=== PATIENT | female | born 1930 | race Caucasian/White ===

== ENCOUNTER 2017-11-16 14:40 | Inpatient (IN) | payer MEDICARE, OTHER ==
--- NOTE | 2017-11-16 15:05 | ED Physician Chart ---
ED Chief Complaint/HPI - Patient Information Date Seen:: 11/16/17 Time Seen:: 14:50 Chief Complaint:: Agitation History of Present Illness:: onset x 3 days of agitation and aggressive behavior; no report of trauma, SIs, H /As, neck pain, C/P, SOB, Abd. Pain, A/N/V/D/C, fever, chills, or urinary s/s Historian:: Patient, EMS Review:: Nurse's Note Reviewed, Old Chart Reviewed, EMS run form Reviewed ED Review of Systems - Review of Systems General/Constitutional: No fever, No chills, No weight loss, No weakness, No diaphoresis, No edema, No loss of appetite Skin: No skin lesions, No rash, No bruising Head: No headache, No light-headedness Eyes: No loss of vision, No pain, No diplopia ENT: No earache, No nasal drainage, No sore throat, No tinnitus Neck: No neck pain, No swelling, No thyromegaly, No stiffness, No mass noted Cardio Vascular: No chest pain, No palpitations, No PND, No orthopnea, No edema Pulmonary: No SOB, No cough, No sputum, No wheezing GI: No nausea, No vomiting, No diarrhea, No pain, No melena, No hematochezia, No constipation, No hematemesis G/U: No dysuria, No frequency, No hematuria Millinery Copyist: No vaginal discharge, No abnormal vaginal bleed, No contraction Musculoskeletal: No bone or joint pain, No back pain, No muscle pain Endocrine: No polyuria, No polydipsia Psychiatric: Prior psych history, No depression, Anxiety, No suicidal ideation, No homicidal ideation, No auditory hallucination, No visual hallucination Hematopoietic: No bruising, No lymphadenopathy Allergic/Immuno: No urticaria, No angioedema Neurological: No syncope, No focal symptoms, No weakness, No paresthesia, No headache, No seizure, No dizziness, Confusion, No vertigo ED Past Medical History - Past Medical History Obtainable: Yes Past Medical History: HTN, CAD, Arthritis, Dementia Family History: HTN Social History: Non Smoker, No Alcohol, No Drug Use, , Care Facility Surgical History: None Psychiatricy History: Bipolar, Dementia Medication: Reviewed Family Medical History - Family Member Mother History Unknown: Yes Living Status: ED Physical Exam - Physical Examination General/Constitutional: Awake, Well-developed, well-nourished, Alert, No distress, GCS 15, Non-toxic appearing, Ambulatory Head: Atraumatic Eyes: Lids, conjuctiva normal, PERRL, EOMI Skin: Nl inspection, No rash, No skin lesions, No ecchymosis, Well hydrated, No lymphadenopathy ENMT: External ears, nose nl, TM canals nl, Nasal exam nl, Lips, teeth, gums nl , Oropharynx nl, Tonsils nl Neck: Nontender, Full ROM w/o pain, No JVD, No nuchal rigidity, No bruit, No mass, No stridor Respiratory: Nl effort/Exclusion, Clear to Auscultation, No Wheeze/Rhonchi/Rales Cardio Vascular: RRR, No murmur, gallop, rubs, NL S1 S2, Carotid/Femoral/Distal pulses equal bilaterally GI: No tenderness/rebounding/guarding, No organomegaly, No hernia, Normal BS's, Nondistended, No mass/bruits, No McBurney tenderness : No CVA tenderness Extremities: No tenderness or effusion, Full ROM, normal strength in all extremities, No edema, Normal digits & nails Neuro/Psych: Alert/oriented, DTR's symmetric, Normal sensory exam, Normal motor strength, Judgement/insight normal, Mood normal, Normal gait, No focal deficits Other Neuro/Psych comments:: Disoriented and Confused; + Psychomotor Agitation; no SIs; Mood/Affect: Stable Misc: Normal back, No paraspinal tenderness ED Labs/Radiology/EKG Results - Lab Results Comments:: Reviewed - EKG Interpretations Comments:: unable to perform due to hostile pt ED Septic Shock - . Is Septic Shock (SBP<90, OR Lactate>4 mmol\L) present?: No ED Reassessment (Disposition) - Reassessment Reassessment Condition:: Improved - Diagnosis Diagnosis:: Agitation; Dementia; Alzheimer's Disease; Medical Clearance; Bipolar Disorder - Aftercare/Follow up Instructions Aftercare/Follow-Up Instructions:: Counseled pt regarding lab results/diagnosis & need follow up, Counseled pt & family regarding lab results/diagnosis & need follow up - Patient Disposition Discharge/Transfer:: Acute Care w/in this hosp Admitted to:: [facility] Condition at Disposition:: Stable, Improved
[2017-11-16 15:38] LABS: % BASOPHILS 0.4 % (0.0-2.0); % EOSINOPHILS 0.5 % (0.0-5.0); % MONOCYTES 7.7 % (2.0-10.0); % NEUTROPHILS 65.4 % (40.0-80.0); HEMATOCRIT 43.1 % (41.0-60); HEMOGLOBIN 14.5 gm/dL (12-16); LYMPHOCYTE ABSOLUTE 1.8 Th/cmm (1.5-3.0); MEAN CELL VOLUME 88.2 fl (81-100); MEAN CORPUSCULAR HEMOGLOBIN 29.7 pg (27.0-31.0); MEAN CORPUSCULAR HGB CONC 33.7 pg (28.0-36.0); MEAN PLATELET VOLUME 8.1 fl; MONOCYTE ABSOLUTE 0.5 Th/cmm (0.3-1.0); NEUTROPHILE ABSOLUTE 4.5 Th/cmm (1.8-8.0); PLATELET COUNT 248 Th/cmm (150-400); RED BLOOD COUNT 4.88 Mil/cmm (3.80-5.20); RED CELL DISTRIBUTION WIDTH 13.5 % (11.5-20.0); WHITE BLOOD COUNT 6.8 Th/cmm (4.8-10.8)
[2017-11-16 15:57] LABS: ACETAMINOPHEN < 10.0 ug/mL (10.0-30.0); ALB/GLOB RATIO 1.5 (1.0-1.8); ALBUMIN 4.2 gm/dL (3.7-5.3); ALKALINE PHOSPHATASE 71 U/L (34-104); ANION GAP 10.5 (7.0-16.0); BILIRUBIN,TOTAL 0.4 mg/dL (0.3-1.0); BUN - UREA NITROGEN 28 mg/dL (7-25); CALCIUM SERUM 9.9 mg/dL (8.6-10.3); CARBON DIOXIDE 26.1 mEq/L (21.0-31.0); CHLORIDE 106 mEq/L (98-107); CHOLESTEROL 212 mg/dL (<200); CREATININE - SERUM 1.1 mg/dL (0.6-1.2); GLUCOSE 128 mg/dL (70-105); HDL -HIGH DENSITY LIPOPROTEIN 48 mg/dL (23-92); POTASSIUM SERUM 3.6 mEq/L (3.5-5.1); SALICYLATES (ASPIRIN) < 25.0 mg/L (30.0-100.0); SGOT 14 U/L (13-39); SGPT/ALT 9 U/L (7-52); SODIUM SERUM 139 mEq/L (136-145); TOTAL PROTEIN,SERUM 7.1 gm/dL (6.0-8.3); TRIGLYCERIDES 179 mg/dL (<150)
[2017-11-16 16:17] LABS: URINE SOURCE CLEAN C
[2017-11-16 16:20] LABS: URINE BILIRUBIN NEGATIVE (NEGATIVE); URINE BLOOD MODERATE (NEGATIVE); URINE GLUCOSE (UA) NEGATIVE (NEGATIVE); URINE KETONE NEGATIVE (NEGATIVE); URINE LEUKOCYTE ESTERASE MODERATE (NEGATIVE); URINE MICROSCOPIC INDICATED? YES; URINE NITRATE POSITIVE (NEGATIVE); URINE PROTEIN NEGATIVE (NEGATIVE); URINE UROBILINOGEN 0.2 E.U./dL (0.2 - 1.0)
[2017-11-16 16:21] LABS: URINE CLARITY CLOUDY (CLEAR); URINE COLOR YELLOW
[2017-11-16 16:25] LABS: URINE BACTERIA MANY /hpf (NONE SEEN); URINE EPITHELIAL CELLS FEW /lpf (FEW)
[2017-11-16 16:47] LABS: AMPHETAMINE URINE NEGATIVE (NEGATIVE); BARBITURATES URINE NEGATIVE (NEGATIVE); BENZODIAZEPINES QUAL URINE NEGATIVE (NEGATIVE); CANNABINOID THC NEGATIVE (NEGATIVE); COCAINE METABOLITE QUAL URINE NEGATIVE (NEGATIVE); METHADONE URINE NEGATIVE (NEGATIVE); METHAMPHETAMINES QUAL URINE NEGATIVE (NEGATIVE); OPIATES (MORPHINE) QUAL. URINE NEGATIVE (NEGATIVE); PHENCYCLIDINE (PCP) URINE NEGATIVE (NEGATIVE); TRICYCLICS (TCA) QUAL. URINE NEGATIVE (NEGATIVE)
--- NOTE | 2017-11-16 20:03 | History & Physical ---
ADMIT DATE: 11/16/2017 CHIEF COMPLAINT: The patient was admitted because of aggressive behavior and increasing agitation. HISTORY OF PRESENT ILLNESS: The patient has been having severe agitation and aggressive behavior for the last 3 days, was brought to the Emergency Room. She was medically cleared, was admitted to the Geropsych Unit for aggressive behavior and psychosis. REVIEW OF SYSTEMS: Essentially negative. PAST MEDICAL HISTORY: Hypertension, arthritis, coronary artery disease, and dementia. PHYSICAL EXAMINATION: HEAD: Normal. ENT: Normal. NECK: Supple, nontender. LUNGS: Clear. CARDIOVASCULAR SYSTEM: S1, S2 heard. ABDOMEN: Soft. Bowel sounds are heard. CENTRAL NERVOUS SYSTEM: The patient is very confused and is agitated. DIAGNOSES: Acute agitation, encephalopathy, history of coronary artery disease, history of hypertension, history of bipolar disorder, and history of arthritis was made. PLAN: The patient is being admitted. I will follow the patient medically and psychiatrist will see the patient. JOB# [id number]
[2017-11-16 20:12] LABS: A1C % 5.7 % (4.0-6.0)
[2017-11-16 20:26] VITALS: BP 110/77
[2017-11-16] MEDS ORDERED: Magnesium Hydroxide (MOM) 30 mL UDC PO SCH (21:00)
[2017-11-17] MEDS ORDERED: Non-Formulary Item 1 EA (Metoprolol Tartrate [Metoprolol Tartrate] 100 MG) PO SCH (09:00)
[2017-11-17] MEDS ORDERED: POTASSIUM CHLORIDE 10 MEQ PO SCH (09:00)
[2017-11-17] MEDS: Multivitamin Tab PO SCH ×2 (09:38→11:08)
[2017-11-17] MEDS: Potassium Chloride 10 mEq ER Tab PO SCH ×2 (09:40→11:08)
[2017-11-19] MEDS ORDERED: cloNIDine 0.2 mg/24 hr Tdm TD SCH (20:44)
== END 2017-11-17 14:10 | disposition short-term general hospital (02) | DRG 885 ==
LOC: ER 14:40 → GERO 17:00
PROVIDERS: ADMIT Psychiatry & Neurology Psychiatry; ATTEND Psychiatry & Neurology Psychiatry
DX: F31.9 Bipolar disorder, unspecified (principal); G93.40 Encephalopathy, unspecified; F02.80 Dementia in other diseases classified elsewhere, unspecified severity, without behavioral disturbance, psychotic disturbance, mood disturbance, and anxiety; I10 Essential (primary) hypertension; I25.10 Atherosclerotic heart disease of native coronary artery without angina pectoris; G30.9 Alzheimer's disease, unspecified; M19.90 Unspecified osteoarthritis, unspecified site; Z82.49 Family history of ischemic heart disease and other diseases of the circulatory system
CPT/HCPCS: 36415-UA; 80053-TC; 80061-TC; 80307; 80320-TC; 80329-TC; 81001-TC; 83036-90; 84443-TC; 84484-TC; 85025-TC; 86592-TC; 87086-90; J2060; Z7610

== ENCOUNTER 2017-11-17 14:10 | Inpatient (IN) | payer MEDICARE, OTHER ==
--- NOTE | 2017-11-17 15:34 | Psychiatric Evaluation ---
DATE OF SERVICE: 11/17/2017 IDENTIFYING DATA: The patient is an 87-year-old woman, resident of [facility]. Information obtained directly interviewing the patient as well as reviewing the admission papers and they are reliable. JUSTIFICATION OF HOSPITALIZATION: The patient is admitted for her agitation, confusion and striking out. HISTORY OF PRESENT ILLNESS: This patient is an 87-year-old woman, resident of [facility]. The patient is reported to have been agitated at the facility and then they brought her over here. Tried to interview the patient, but the patient is noted to be very sedated and is not able to provide much of information. However, the patient has been responding to questioning persistently, but the patient's responses are noted to be very slow. The patient has psychomotor retardation. PAST PSYCHIATRIC HISTORY: Details are not known. MEDICAL HISTORY AND PHYSICAL EXAMINATION: Requested done by Dr. Wolf. SUBSTANCE ABUSE HISTORY: Details are not known. LEGAL PROBLEMS: None at this time. MENTAL STATUS EXAMINATION: The patient is an 87-year-old thin built, superficially cooperative, very drowsy. Eye contact is poor. Mood is noted to be dysphoric. The patient says psychotic symptoms could not be elicited. The patient at this time has been not able to provide much of any information. The patient is going to be maintained only on Ativan 0.5 mg on a p.r.n. basis. Possibly, the patient is going to be transferred to the Med/Surg Unit for further medical stabilization before she is going to be taken care of her psychiatric issues. DIAGNOSTIC IMPRESSION: AXIS I: Dementia and behavioral change, secondary trait. AXIS II: None. AXIS III: As per Dr. Wolf. IMMEDIATE TREATMENT PLAN: The patient is going to be referred to the primary care physician as possible transfer to the medical floor for stabilization. JOB# [id number]
[2017-11-17 15:39] VITALS: BP 154/70
[2017-11-17] MEDS: D5-0.45NS 1,000 ML IV SCH (17:37)
[2017-11-18 06:45] LABS: % BASOPHILS 0.6 % (0.0-2.0); % EOSINOPHILS 1.9 % (0.0-5.0); % LYMPHOCYTES 37.7 % (20.0-50.0); % MONOCYTES 10.3 % (2.0-10.0); % NEUTROPHILS 49.5 % (40.0-80.0); EOSINOPHILE ABSOLUTE 0.1 Th/cmm (0.1-0.4); HEMATOCRIT 41.5 % (41.0-60); LYMPHOCYTE ABSOLUTE 1.9 Th/cmm (1.5-3.0); MEAN CELL VOLUME 89.4 fl (81-100); MEAN CORPUSCULAR HEMOGLOBIN 30.2 pg (27.0-31.0); MEAN CORPUSCULAR HGB CONC 33.8 pg (28.0-36.0); MEAN PLATELET VOLUME 8.7 fl; MONOCYTE ABSOLUTE 0.5 Th/cmm (0.3-1.0); NEUTROPHILE ABSOLUTE 2.6 Th/cmm (1.8-8.0); PLATELET COUNT 221 Th/cmm (150-400); RED BLOOD COUNT 4.64 Mil/cmm (3.80-5.20); RED CELL DISTRIBUTION WIDTH 13.5 % (11.5-20.0); WHITE BLOOD COUNT 5.1 Th/cmm (4.8-10.8)
[2017-11-18 07:07] LABS: ALB/GLOB RATIO 1.3 (1.0-1.8); ALBUMIN 3.3 gm/dL (3.7-5.3); ALKALINE PHOSPHATASE 53 U/L (34-104); BILIRUBIN,TOTAL 0.8 mg/dL (0.3-1.0); BUN - UREA NITROGEN 27 mg/dL (7-25); CALCIUM SERUM 9.2 mg/dL (8.6-10.3); CARBON DIOXIDE 25.7 mEq/L (21.0-31.0); CHLORIDE 107 mEq/L (98-107); CREATININE - SERUM 0.9 mg/dL (0.6-1.2); GLUCOSE 112 mg/dL (70-105); POTASSIUM SERUM 3.7 mEq/L (3.5-5.1); SGOT 14 U/L (13-39); SGPT/ALT 8 U/L (7-52); SODIUM SERUM 137 mEq/L (136-145); TOTAL PROTEIN,SERUM 5.9 gm/dL (6.0-8.3)
[2017-11-18] MEDS: D5-0.45NS 1,000 ML IV SCH (12:59)
--- NOTE | 2017-11-18 16:22 | General Progress Note ---
Objective - Results Result Diagrams: 11/18/17 05:30 11/18/17 05:30 Recent Labs: Laboratory Last Values WBC 5.1 Th/cmm (4.8-10.8) 11/18/17 05:30 RBC 4.64 Mil/cmm (3.80-5.20) 11/18/17 05:30 Hgb 14.0 gm/dL (12-16) 11/18/17 05:30 Hct 41.5 % (41.0-60) 11/18/17 05:30 MCV 89.4 fl (81-100) 11/18/17 05:30 MCH 30.2 pg (27.0-31.0) 11/18/17 05:30 MCHC Differential 33.8 pg (28.0-36.0) 11/18/17 05:30 RDW 13.5 % (11.5-20.0) 11/18/17 05:30 Plt Count 221 Th/cmm (150-400) 11/18/17 05:30 MPV 8.7 fl 11/18/17 05:30 Neutrophils % 49.5 % (40.0-80.0) 11/18/17 05:30 Lymphocytes % 37.7 % (20.0-50.0) 11/18/17 05:30 Monocytes % 10.3 % (2.0-10.0) H 11/18/17 05:30 Eosinophils % 1.9 % (0.0-5.0) 11/18/17 05:30 Basophils % 0.6 % (0.0-2.0) 11/18/17 05:30 Sodium 137 mEq/L (136-145) 11/18/17 05:30 Potassium 3.7 mEq/L (3.5-5.1) 11/18/17 05:30 Chloride 107 mEq/L (98-107) 11/18/17 05:30 Carbon Dioxide 25.7 mEq/L (21.0-31.0) 11/18/17 05:30 Anion Gap 8.0 (7.0-16.0) 11/18/17 05:30 BUN 27 mg/dL (7-25) H 11/18/17 05:30 Creatinine 0.9 mg/dL (0.6-1.2) 11/18/17 05:30 Est GFR ( Amer) TNP 11/18/17 05:30 Est GFR (Non-Af Amer) TNP 11/18/17 05:30 BUN/Creatinine Ratio 30.0 11/18/17 05:30 Glucose 112 mg/dL (70-105) H 11/18/17 05:30 POC Glucose 88 MG/DL (70 - 105) 11/17/17 16:10 Calcium 9.2 mg/dL (8.6-10.3) 11/18/17 05:30 Total Bilirubin 0.8 mg/dL (0.3-1.0) 11/18/17 05:30 AST 14 U/L (13-39) 11/18/17 05:30 ALT 8 U/L (7-52) 11/18/17 05:30 Alkaline Phosphatase 53 U/L (34-104) 11/18/17 05:30 Total Protein 5.9 gm/dL (6.0-8.3) L 11/18/17 05:30 Albumin 3.3 gm/dL (3.7-5.3) L 11/18/17 05:30 Globulin 2.6 gm/dL 11/18/17 05:30 Albumin/Globulin Ratio 1.3 (1.0-1.8) 11/18/17 05:30 - Physical Exam Vitals and I&O: Vital Signs Temp 97.2 F 11/18/17 14:53 Pulse 85 11/18/17 14:53 Resp 18 11/18/17 14:53 BP 130/62 11/18/17 14:53 Pulse Ox 98 11/18/17 14:53 Intake & Output 11/17/17 11/18/17 11/18/17 18:59 06:59 18:59 Intake Total 0 968.333 Balance 0 968.333 Weight (lbs) 60.781 kg 61.689 kg Intake: Intake, IV Amount 968.333 D5-0.45NS 1,000 ml @ 50 968.333 mls/hr IV .Q20H TINO Rx#: [id number] Oral 0 Other: # Voids 1 # Bowel Movements 1 Stool Characteristics Soft Soft Weight Source Bedscale Bedscale Active Medications: Current Medications Amlodipine Besylate (Norvasc) 10 mg PO HS TINO Stop: 01/17/18 20:59 Bisacodyl (Dulcolax 10 Mg Supp) 10 mg RC DAILY PRN PRN Reason: Constipation Stop: 01/17/18 09:02 Clonidine HCl (Niafxgvp-Cas-6) 1 patch TD Fr TINO Stop: 01/18/18 09:02 Clopidogrel Bisulfate (Plavix) 75 mg PO DAILY TINO Stop: 01/18/18 08:59 Divalproex Sodium (Depakote Dr) 125 mg PO DAILY TINO; Protocol Stop: 01/18/18 08:59 Divalproex Sodium (Depakote Dr) 125 mg PO HS TINO; Protocol Stop: 01/17/18 20:59 Docusate Sodium (Colace) 100 mg PO BID TINO Stop: 01/17/18 16:59 Famotidine (Pepcid) 20 mg PO QAM ITNO Stop: 01/18/18 08:59 Hydrochlorothiazide (Hctz) 25 mg PO DAILY TINO Stop: 01/18/18 08:59 Dextrose/Sodium Chloride (D5-0.45ns) 1,000 mls @ 50 mls/hr IV .Q20H TINO Stop: 01/16/18 16:29 Last Admin: 11/18/17 12:59 Dose: 50 mls/hr Ceftriaxone Sodium 1 gm/ (Sodium Chloride) 50 mls @ 100 mls/hr IV Q24HR TINO Lorazepam (Ativan) 0.5 mg PO Q4HR PRN; Protocol PRN Reason: Anxiety Stop: 01/17/18 09:02 Losartan Potassium (Cozaar) 100 mg PO DAILY TINO Stop: 01/18/18 08:59 Magnesium Hydroxide (Milk Of Magnesia) 30 ml PO HS TINO Stop: 01/17/18 20:59 Magnesium Oxide (Mag-Oxide) 400 mg PO DAILY TINO Stop: 01/18/18 08:59 Medroxyprogesterone Acetate (Provera) 10 mg PO DAILY TINO; Protocol Stop: 01/18/18 08:59 Medroxyprogesterone Acetate (Provera) 10 mg PO DAILY TINO; Protocol Stop: 01/18/18 08:59 Metoprolol Tartrate (Lopressor) 100 mg PO BID TINO Stop: 01/17/18 16:59 Multivitamins/Vitamin C (Theragran) 1 tab PO DAILY TINO Stop: 01/18/18 08:59 Potassium Chloride (Klor-Con) 10 meq PO BID TINO Stop: 01/17/18 16:59 Quetiapine Fumarate (Seroquel) 12.5 mg PO HS TINO; Protocol Stop: 01/17/18 20:59 Zolpidem Tartrate (Ambien) 5 mg PO HS PRN PRN Reason: Insomnia Stop: 01/17/18 09:02
[2017-11-18] MEDS: cefTRIAXone 1 GM in Sodium Chloride 0.9% 50 ML IV SCH (16:30)
[2017-11-18] MEDS: Potassium Chloride 10 mEq ER Tab PO SCH (16:33)
[2017-11-18] MEDS ORDERED: POTASSIUM CHLORIDE 10 MEQ PO SCH (17:00)
[2017-11-18] MEDS ORDERED: Non-Formulary Item 1 EA (Metoprolol Tartrate [Metoprolol Tartrate] 100 MG) PO SCH (17:00)
[2017-11-19] MEDS: Magnesium Hydroxide (MOM) 30 mL UDC PO SCH ×2 (00:42→21:48)
[2017-11-19 05:45] LABS: ALB/GLOB RATIO 1.3 (1.0-1.8); ALBUMIN 3.3 gm/dL (3.7-5.3); ALKALINE PHOSPHATASE 52 U/L (34-104); ANION GAP 9.1 (7.0-16.0); BILIRUBIN,TOTAL 0.5 mg/dL (0.3-1.0); BUN - UREA NITROGEN 17 mg/dL (7-25); CALCIUM SERUM 9.2 mg/dL (8.6-10.3); CARBON DIOXIDE 25.5 mEq/L (21.0-31.0); CHLORIDE 106 mEq/L (98-107); CREATININE - SERUM 0.8 mg/dL (0.6-1.2); GLUCOSE 105 mg/dL (70-105); POTASSIUM SERUM 3.6 mEq/L (3.5-5.1); SGOT 12 U/L (13-39); SGPT/ALT 7 U/L (7-52); SODIUM SERUM 137 mEq/L (136-145); TOTAL PROTEIN,SERUM 5.9 gm/dL (6.0-8.3)
[2017-11-19 06:54] LABS: % BASOPHILS 0.3 % (0.0-2.0); % EOSINOPHILS 1.4 % (0.0-5.0); % LYMPHOCYTES 41.2 % (20.0-50.0); % MONOCYTES 10.2 % (2.0-10.0); % NEUTROPHILS 46.9 % (40.0-80.0); EOSINOPHILE ABSOLUTE 0.1 Th/cmm (0.1-0.4); HEMATOCRIT 42.6 % (41.0-60); HEMOGLOBIN 14.4 gm/dL (12-16); LYMPHOCYTE ABSOLUTE 2.6 Th/cmm (1.5-3.0); MEAN CELL VOLUME 89.7 fl (81-100); MEAN CORPUSCULAR HEMOGLOBIN 30.3 pg (27.0-31.0); MEAN CORPUSCULAR HGB CONC 33.8 pg (28.0-36.0); MEAN PLATELET VOLUME 8.8 fl; MONOCYTE ABSOLUTE 0.7 Th/cmm (0.3-1.0); PLATELET COUNT 209 Th/cmm (150-400); RED BLOOD COUNT 4.75 Mil/cmm (3.80-5.20); RED CELL DISTRIBUTION WIDTH 13.3 % (11.5-20.0)
[2017-11-19 06:57] LABS: WHITE BLOOD COUNT 6.4 Th/cmm (4.8-10.8)
[2017-11-19] MEDS ORDERED: cloNIDine 0.2 mg/24 hr Tdm TD SCH (09:03)
[2017-11-19] MEDS: Potassium Chloride 10 mEq ER Tab PO SCH ×2 (10:05→18:48)
[2017-11-19] MEDS: Multivitamin Tab PO SCH (10:05)
[2017-11-19] MEDS: D5-0.45NS 1,000 ML IV SCH (12:36)
[2017-11-19] MEDS: cefTRIAXone 1 GM in Sodium Chloride 0.9% 50 ML IV SCH (18:48)
--- NOTE | 2017-11-19 21:37 | Consultation ---
Consult Note - Consult Note Service Date: 11/19/17 Referring Physician: Gil Wolf Consult Note: PHYSICIAN Consultation Note: Date of Admission: 11/17/17 Purpose of Consultation: UTI. Chief Complaint: Patient LILI WASHINGTON was admitted to location Medical/ Surgical Unit I with DEHYDRATION. History of Present Illness: 87 year female with past medical history of Hypertension, arthritis, carotid disease, dementia brought to the hospital for severe agitation. She was admitted to the geropsychiatric unit. On further workup it was found that patient have UTI and urine culture growing Escherichia coli. Patient was transferred to the acute care unit for antibiotic management. Patient is unable to give any history. Past Medical History: Hypertension, arthritis, carotid disease, dementia. Allergies Allergy/AdvReac Type Severity Reaction Status Date / Time No Known Allergies Allergy Verified 11/16/17 15:09 Vital Signs Temp 97.4 F 11/19/17 16:00 Pulse 96 11/19/17 18:49 Resp 18 11/19/17 16:00 BP 130/79 11/19/17 18:49 Pulse Ox 96 11/19/17 16:00 Intake & Output 11/19/17 11/19/17 11/20/17 06:59 18:59 06:59 Intake Total 1000 Balance 1000 Weight (lbs) 61.689 kg Intake: Intake, IV Amount 1000 D5-0.45NS 1,000 ml @ 50 1000 mls/hr IV .Q20H [facility] Rx#: [id number] Other: Weight Source Estimated Laboratory Results - last 24 hr 11/19/17 11/19/17 04:35 04:35 WBC 6.4 D RBC 4.75 Hgb 14.4 Hct 42.6 MCV 89.7 MCH 30.3 MCHC Differential 33.8 RDW 13.3 Plt Count 209 MPV 8.8 Neutrophils % 46.9 Lymphocytes % 41.2 Monocytes % 10.2 H Eosinophils % 1.4 Basophils % 0.3 Sodium 137 Potassium 3.6 Chloride 106 Carbon Dioxide 25.5 Anion Gap 9.1 BUN 17 Creatinine 0.8 Est GFR ( Amer) TNP Est GFR (Non-Af Amer) TNP BUN/Creatinine Ratio 21.3 Glucose 105 Calcium 9.2 Total Bilirubin 0.5 AST 12 L ALT 7 Alkaline Phosphatase 52 Total Protein 5.9 L Albumin 3.3 L Globulin 2.6 Albumin/Globulin Ratio 1.3 Home Medication Medication Instructions Recorded Type Metoprolol Tartrate 100 mg PO BID 11/16/17 History Potassium Chloride [Klor-Con 10] 10 meq PO BID 11/16/17 History medroxyPROGESTERone Acetate 10 mg PO DAILY 11/16/17 History [Provera] Bisacodyl [Dulcolax 10 Mg Supp] 10 mg RC DAILY PRN sup 11/17/17 Rx Clopidogrel [Plavix] 75 mg PO DAILY tab 11/17/[address] [Leilanite DR] 125 mg PO DAILY tcp 11/17/[address] [Gretel DR] 125 mg PO HS tcp 11/17/17 Rx Docusate Sodium [Colace] 100 mg PO BID cap 11/17/17 Rx Famotidine [Pepcid] 20 mg PO QAM tab 11/17/17 Rx Hydrochlorothiazide [Hctz*] 25 mg PO DAILY tab 11/17/17 Rx Lorazepam [Ativan] 0.5 mg PO Q4HR PRN tab 11/17/17 Rx Losartan Potassium [Cozaar] 100 mg PO DAILY tab 11/17/17 Rx Magnesium Hydroxide [Milk of 30 ml PO HS udc 11/17/17 Rx Magnesia] Magnesium Oxide [Mag-Oxide] 400 mg PO DAILY tab 11/17/17 Rx Metoprolol Tartrate [Lopressor] 100 mg PO BID tab 11/17/17 Rx Multivitamin [Theragran] 1 tab PO DAILY tab 11/17/17 Rx Potassium Chloride ER [Klor-Con] [address] 11/17/17 Rx QUEtiapine Fumarate [SEROquel] 12.5 mg PO HS tab 11/17/17 Rx Zolpidem Tartrate [Ambien] 5 mg PO HS PRN tab 11/17/17 Rx amLODIPine Besylate [Norvasc*] 10 mg PO HS tab 11/17/17 Rx cloNIDine 0.2 mg/24 hr 1 patch TD Fr patch 11/17/17 Rx [Driuxwjf-VBT-6*] medroxyPROGESTERone Acetate 10 mg PO DAILY tab 11/17/17 Rx [Provera] Current Medications Generic Name Dose Route Start Last Admin Trade Name Freq PRN Reason Stop Dose Admin Amlodipine Besylate 10 mg 11/18/17 21:00 11/18/17 21:41 Norvasc PO 01/17/18 20:59 10 mg HS TINO Administration Bisacodyl 10 mg 11/18/17 09:03 Dulcolax 10 Mg Supp RC 01/17/18 09:02 DAILY PRN Constipation Clonidine HCl 1 patch 11/19/17 09:03 11/19/17 10:10 [id number]-Rjq-5 TD 01/18/18 09:02 1 patch Fr TINO Administration Clopidogrel Bisulfate 75 mg 11/19/17 09:00 11/19/17 10:05 Plavix PO 01/18/18 08:59 75 mg DAILY TINO Administration Divalproex Sodium 125 mg 11/19/17 09:00 11/19/17 10:[address] PO 01/18/18 08:59 125 mg DAILY TINO Administration Protocol Divalproex Sodium 125 mg 11/19/17 21:[address] PO 01/17/18 20:59 HS TINO Protocol Docusate Sodium 100 mg 11/18/17 17:00 11/19/17 18:48 Colace PO 01/17/18 16:59 100 mg BID TINO Administration Famotidine 20 mg 11/19/17 09:00 11/19/17 10:00 Pepcid PO 01/18/18 08:59 20 mg QAM TINO Administration Hydrochlorothiazide 25 mg 11/19/17 09:00 11/19/17 11:54 Hctz PO 01/18/18 08:59 25 mg DAILY TINO Administration Dextrose/Sodium Chloride 1,000 mls @ 50 mls/hr 11/17/17 16:30 11/19/17 12:36 D5-0.45ns IV 01/16/18 16:29 50 mls/hr .Q20H TINO Administration Ceftriaxone Sodium 1 gm/ 50 mls @ 100 mls/hr 11/18/17 17:00 11/19/17 18:48 Sodium Chloride IV 100 mls/hr Q24HR TINO Administration Lorazepam 0.5 mg 11/18/17 09:03 11/19/17 12:34 Ativan PO 01/17/18 09:02 0.5 mg Q4HR PRN Administration Anxiety Protocol Losartan Potassium 100 mg 11/19/17 09:00 11/19/17 10:05 Cozaar PO 01/18/18 08:59 100 mg DAILY TINO Administration Magnesium Hydroxide 30 ml 11/18/17 21:00 11/19/17 00:42 Milk Of Magnesia PO 01/17/18 20:59 30 ml HS TINO Administration Magnesium Oxide 400 mg 11/19/17 09:00 11/19/17 10:05 Mag-Oxide PO 01/18/18 08:59 400 mg DAILY TINO Administration Medroxyprogesterone Acetate 10 mg 11/19/17 09:00 11/19/17 10:20 Provera PO 01/18/18 08:59 10 mg DAILY TINO Administration Protocol Metoprolol Tartrate 100 mg 11/18/17 17:00 11/19/17 18:49 Lopressor PO 01/17/18 16:59 100 mg BID TINO Administration Multivitamins/Vitamin C 1 tab 11/19/17 09:00 11/19/17 10:05 Theragran PO 01/18/18 08:59 1 tab DAILY TINO Administration Potassium Chloride 10 meq 11/18/17 17:00 11/19/17 18:48 Klor-Con PO 01/17/18 16:59 10 meq BID TINO Administration Quetiapine Fumarate 12.5 mg 11/18/17 21:00 11/18/17 21:41 Seroquel PO 01/17/18 20:59 12.5 mg HS TINO Administration Protocol Zolpidem Tartrate 5 mg 11/18/17 09:03 Ambien PO 01/17/18 09:02 HS PRN Insomnia Review of Systems: A 12 point ROS was reviewed with the pertinent positive and negatives noted in the HPI. Social History Smoking Status Never smoker Drug Use No Alcohol Use No Family Medical History Family Medical History Start: 11/17/17 15: 09 Freq: ONCE Status: Active Protocol: Document 11/17/17 15:36 PTSAI (Rec: 11/17/17 15:36 PTSAI [id number]) Family Medical History Mother History Unknown Yes Physical Exam: General: Comfortable, not in acute distress. HEENT: Head: Normocephalic, atraumatic. Oral cavity: Moist, pink tongue. Eyes : Pallor is present icterus. Pupil PERRLA EOMI. Neck: Supple, no JVD. No use of accessory neck muscles. Cardio: S1 and S2 within normal limits regular rhythm no murmur no gallop. Respiratory: Vesicular breath sounds. No crackles or wheezing. Abdominal: Soft, nontender nondistended bowel sounds present. Genital/Urinary: Deferred. Extremities: No cyanosis, no clubbing, no edema. Neurological: Alert, awake. Assessment: 1. UTI. Escherichia coli UTI. 2. Dementia. 3. Hypertension. 4. Arthritis. Plan: Will continue Rocephin which can be changed to doxycycline 100 mg by mouth twice a day for total 7 days from now. Thank you, Dr. Wolf for involving me in taking care of this patient. Signed, Jose C Hallman M.D. [id number]/19/[id number]
[2017-11-20] MEDS: Multivitamin Tab PO SCH (08:17)
[2017-11-20] MEDS: Potassium Chloride 10 mEq ER Tab PO SCH ×2 (08:17→16:18)
--- NOTE | 2017-11-20 09:29 | History & Physical ---
ADMIT DATE: 11/17/2017 CHIEF COMPLAINT: Poor oral intake and weakness. HISTORY OF PRESENT ILLNESS: This is an 87-year-old female who was originally admitted to [facility] mental health unit due to increase in agitation, but apparently the patient has been noted to have weakness and poor oral intake, so [facility]. REVIEW OF SYSTEMS: GENERAL: This is an 87-year-old female that appears as stated. No fever. Positive weakness. HEENT: No headache. No dizziness. EYES: No eye pain, no blurring of vision. NECK: No neck pain. No nuchal rigidity. CHEST: No chest pain. No palpitation. PULMONARY: No coughing. No shortness of breath. GASTROINTESTINAL: No abdominal pain, no constipation or diarrhea. MUSCULOSKELETAL: No joint pain. No muscle pain. SOCIAL HISTORY: The patient lives in a [facility] facility prior to hospitalization. No nicotine, alcohol, or illicit drug use. PSYCHIATRIC HISTORY: Includes dementia. FAMILY HISTORY: Unremarkable. PAST SURGICAL HISTORY: Unremarkable. PAST MEDICAL HISTORY: Includes coronary artery disease, hypertension, and gastroesophageal reflux disease. PHYSICAL EXAMINATION: VITAL SIGNS: Temperature 97.8, heart rate 78, blood pressure 156/79, and respirations 18, and 96% on room air. HEENT: Head is atraumatic, normocephalic. Eyes, bilateral conjunctivae are clear. Bilateral pupils equal, round, and reactive. NECK: Supple. No JVD. CARDIOVASCULAR: S1 and S2, without murmur. LUNGS: Clear to auscultation. GASTROINTESTINAL: Soft and nontender without guarding. Positive bowel sounds. MUSCULOSKELETAL: No clubbing, no cyanosis noted. ASSESSMENT: 1. Dehydration. 2. Urinary tract infection. 3. Dementia. 4. Coronary artery disease. 5. Hypertension. 6. Gastroesophageal reflux disease. PLAN: We will consult with ID doctor for antibiotic management. We will put the patient in aspiration precaution. We will hydrate the patient with IV fluids. We will do medication reconciliation accordingly. Treatment plans were discussed with the patient's nurse. Treatment plans were discussed with Dr. Wolf. JOB# [id number]
[2017-11-20] MEDS: D5-0.45NS 1,000 ML IV SCH (10:40)
[2017-11-20] MEDS: cefTRIAXone 1 GM in Sodium Chloride 0.9% 50 ML IV SCH (16:18)
[2017-11-20] MEDS: Magnesium Hydroxide (MOM) 30 mL UDC PO SCH (20:49)
[2017-11-21] MEDS: Multivitamin Tab PO SCH (08:11)
[2017-11-21] MEDS: Potassium Chloride 10 mEq ER Tab PO SCH ×2 (08:11→16:19)
[2017-11-21] MEDS: D5-0.45NS 1,000 ML IV SCH (08:17)
--- NOTE | 2017-11-21 13:05 | General Progress Note ---
Subjective - Review of Systems Events since last encounter: patient awake weak poor appetite Objective - Results Result Diagrams: 11/19/17 04:35 11/19/17 04:35 Recent Labs: Laboratory Last Values WBC 6.4 Th/cmm (4.8-10.8) D 11/19/17 04:35 RBC 4.75 Mil/cmm (3.80-5.20) 11/19/17 04:35 Hgb 14.4 gm/dL (12-16) 11/19/17 04:35 Hct 42.6 % (41.0-60) 11/19/17 04:35 MCV 89.7 fl (81-100) 11/19/17 04:35 MCH 30.3 pg (27.0-31.0) 11/19/17 04:35 MCHC Differential 33.8 pg (28.0-36.0) 11/19/17 04:35 RDW 13.3 % (11.5-20.0) 11/19/17 04:35 Plt Count 209 Th/cmm (150-400) 11/19/17 04:35 MPV 8.8 fl 11/19/17 04:35 Neutrophils % 46.9 % (40.0-80.0) 11/19/17 04:35 Lymphocytes % 41.2 % (20.0-50.0) 11/19/17 04:35 Monocytes % 10.2 % (2.0-10.0) H 11/19/17 04:35 Eosinophils % 1.4 % (0.0-5.0) 11/19/17 04:35 Basophils % 0.3 % (0.0-2.0) 11/19/17 04:35 Sodium 137 mEq/L (136-145) 11/19/17 04:35 Potassium 3.6 mEq/L (3.5-5.1) 11/19/17 04:35 Chloride 106 mEq/L (98-107) 11/19/17 04:35 Carbon Dioxide 25.5 mEq/L (21.0-31.0) 11/19/17 04:35 Anion Gap 9.1 (7.0-16.0) 11/19/17 04:35 BUN 17 mg/dL (7-25) 11/19/17 04:35 Creatinine 0.8 mg/dL (0.6-1.2) 11/19/17 04:35 Est GFR ( Amer) TNP 11/19/17 04:35 Est GFR (Non-Af Amer) TNP 11/19/17 04:35 BUN/Creatinine Ratio 21.3 11/19/17 04:35 Glucose 105 mg/dL (70-105) 11/19/17 04:35 POC Glucose 88 MG/DL (70 - 105) 11/17/17 16:10 Calcium 9.2 mg/dL (8.6-10.3) 11/19/17 04:35 Total Bilirubin 0.5 mg/dL (0.3-1.0) 11/19/17 04:35 AST 12 U/L (13-39) L 11/19/17 04:35 ALT 7 U/L (7-52) 11/19/17 04:35 Alkaline Phosphatase 52 U/L (34-104) 11/19/17 04:35 Total Protein 5.9 gm/dL (6.0-8.3) L 11/19/17 04:35 Albumin 3.3 gm/dL (3.7-5.3) L 11/19/17 04:35 Globulin 2.6 gm/dL 11/19/17 04:35 Albumin/Globulin Ratio 1.3 (1.0-1.8) 11/19/17 04:35 - Physical Exam Vitals and I&O: Vital Signs Temp 96.7 F 11/21/17 08:00 Pulse 64 11/21/17 08:10 Resp 18 11/21/17 08:00 BP 145/62 11/21/17 08:11 Pulse Ox 97 11/21/17 08:00 Intake & Output 11/20/17 11/21/17 11/21/17 18:59 06:59 18:59 Intake Total 1000 1750 Balance 1000 1750 Weight (lbs) 59.738 kg Intake: Intake, IV Amount 1000 1000 D5-0.45NS 1,000 ml @ 50 1000 1000 mls/hr IV .Q20H [facility] Rx#: [id number] Oral 750 Other: # Voids 2 # Bowel Movements 1 Weight Source Bedscale Active Medications: Current Medications Amlodipine Besylate (Norvasc) 10 mg PO HS [facility] Stop: 01/17/18 20:59 Last Admin: 11/20/17 20:48 Dose: 10 mg Bisacodyl (Dulcolax 10 Mg Supp) 10 mg RC DAILY PRN PRN Reason: Constipation Stop: 01/17/18 09:02 Clonidine HCl (Turrqhtp-Ryj-3) 1 patch TD Fr [facility] Stop: 01/18/18 09:02 Last Admin: 11/19/17 10:10 Dose: 1 patch Clopidogrel Bisulfate (Plavix) 75 mg PO DAILY [facility] Stop: 01/18/18 08:59 Last Admin: 11/21/17 08:11 Dose: 75 mg Divalproex Sodium (Depakote Dr) 125 mg PO DAILY [facility]; Protocol Stop: 01/18/18 08:59 Last Admin: 11/21/17 08:11 Dose: 125 mg Divalproex Sodium (Depakote Dr) 125 mg PO HS [facility]; Protocol Stop: 01/17/18 20:59 Last Admin: 11/20/17 20:49 Dose: 125 mg Docusate Sodium (Colace) 100 mg PO BID [facility] Stop: 01/17/18 16:59 Last Admin: 11/21/17 08:11 Dose: 100 mg Famotidine (Pepcid) 20 mg PO QAM [facility] Stop: 01/18/18 08:59 Last Admin: 11/21/17 08:11 Dose: 20 mg Hydrochlorothiazide (Hctz) 25 mg PO DAILY [facility] Stop: 01/18/18 08:59 Last Admin: 11/21/17 08:11 Dose: 25 mg Dextrose/Sodium Chloride (D5-0.45ns) 1,000 mls @ 50 mls/hr IV .Q20H [facility] Stop: 01/16/18 16:29 Last Admin: 11/21/17 08:17 Dose: 50 mls/hr Ceftriaxone Sodium 1 gm/ (Sodium Chloride) 50 mls @ 100 mls/hr IV Q24HR [facility] Last Admin: 11/20/17 16:18 Dose: 100 mls/hr Lorazepam (Ativan) 0.5 mg PO Q4HR PRN; Protocol PRN Reason: Anxiety Stop: 01/17/18 09:02 Last Admin: 11/20/17 12:28 Dose: 0.5 mg Losartan Potassium (Cozaar) 100 mg PO DAILY [facility] Stop: 01/18/18 08:59 Last Admin: 11/21/17 08:10 Dose: 100 mg Magnesium Hydroxide (Milk Of Magnesia) 30 ml PO HS [facility] Stop: 01/17/18 20:59 Last Admin: 11/20/17 20:49 Dose: 30 ml Magnesium Oxide (Mag-Oxide) 400 mg PO DAILY [facility] Stop: 01/18/18 08:59 Last Admin: 11/21/17 08:11 Dose: 400 mg Medroxyprogesterone Acetate (Provera) 10 mg PO DAILY [facility]; Protocol Stop: 01/18/18 08:59 Last Admin: 11/21/17 08:10 Dose: 10 mg Metoprolol Tartrate (Lopressor) 100 mg PO BID [facility] Stop: 01/17/18 16:59 Last Admin: 11/21/17 08:10 Dose: 100 mg Multivitamins/Vitamin C (Theragran) 1 tab PO DAILY [facility] Stop: 01/18/18 08:59 Last Admin: 11/21/17 08:11 Dose: 1 tab Potassium Chloride (Klor-Con) 10 meq PO BID [facility] Stop: 01/17/18 16:59 Last Admin: 11/21/17 08:11 Dose: 10 meq Quetiapine Fumarate (Seroquel) 12.5 mg PO HS [facility]; Protocol Stop: 01/17/18 20:59 Last Admin: 11/20/17 20:49 Dose: 12.5 mg Zolpidem Tartrate (Ambien) 5 mg PO HS PRN PRN Reason: Insomnia Stop: 01/17/18 09:02 Nutritional Asmnt/Malnutr-PDOC - Dietary Evaluation Malnutrition Findings (Please click <Entered> for more info): Nutritional Asmnt/Malnutrition Start: 11/20/17 11: 19 Text: Status: Complete Freq: Protocol: Document 11/20/17 11:19 JOSE JUAN (Rec: 11/20/17 11:35 JOSE JUAN FERRER- [id number]) Nutritional Asmnt/Malnutrition Patient General Information Nutritional Screening High Risk Diagnosis dehydration Pertinent Medical Hx/Surgical Hx CAD, Hypertension and GERD. Subjective Information Patient was transferred from [facility] unit. Swallow evaluation was completed on 11/18 with recommendation of Pureed diet, thin liquids. Patient sleeping in bed at time of visit. Current Diet Order/ Nutrition Support Pureed Patient / S.O Not Indicated Pertinent Medications dulcolax, D5-0.45 NS @50 ml/hr , colace, pepcid, cozaar, MOM, mag-oxide, theragran, Klor- con Pertinent Labs (11/19) Albumin 3.3 (stable) Nutritional Hx/Data Height 1.68 m Height (Calculated Centimeters) 167.6 Current Weight (lbs) 58.967 kg Weight (Calculated Kilograms) 59.0 Weight (Calculated Grams) 86964.0 [place] Body Weight 130 % [place] Body Weight 100 Body Mass Index (BMI) 20.9 Recent Weight Change No Weight Status Approriate GI Symptoms GI Symptoms None Last BM 11/20 x 1 Difficult in: None Food Allergies No Cultural/Ethnic/Hinduism Belief none indicated Usual diet at home unknown Skin Integrity/Comment: Slick 14, intact Current %PO Fair (50-74%) Estimated Nutritional Goals BEE in Kcals: Using Current wt Calories/Kcals/Kg 25-30 kcal/kg using CBW 56.1kg Kcals Calculated 4981-5556 kcal/day Protein: Using Current wt Protein g/k gm/kg Protein Calculated 60 gm/day Fluid: ml 4713-7679 ml/day or per MD d/t dehydration Nutritional Problem 1. Problem Problem Inadequate oral intake related to Etiology possible poor appetite aeb Signs/Symptoms: Oral intake ~50% of meals Intervention/Recommendation Comments 1. Continue pureed diet as tolerated by patient as it is the texture that was recommended by POSITION DESCRIPTION MANAGER swallow evaluation. 2. 1:1 feeder as recommended by POSITION DESCRIPTION MANAGER. F/U as Moderate risk in 3-5 days (11/23-) Expected Outcomes/Goals Expected Outcomes/Goals oral intake >75% of meals, weight stable, nutrition related labs WNL
[2017-11-21] MEDS: cefTRIAXone 1 GM in Sodium Chloride 0.9% 50 ML IV SCH (16:18)
--- NOTE | 2017-11-21 18:11 | Infectious Disease Prog Note ---
Infectious Disease Subjective - Review of Systems Service Date: 11/21/17 Infectious Disease Objective - Results Result Diagrams: 11/19/17 04:35 11/19/17 04:35 Recent Labs: Laboratory Last Values WBC 6.4 Th/cmm (4.8-10.8) D 11/19/17 04:35 RBC 4.75 Mil/cmm (3.80-5.20) 11/19/17 04:35 Hgb 14.4 gm/dL (12-16) 11/19/17 04:35 Hct 42.6 % (41.0-60) 11/19/17 04:35 MCV 89.7 fl (81-100) 11/19/17 04:35 MCH 30.3 pg (27.0-31.0) 11/19/17 04:35 MCHC Differential 33.8 pg (28.0-36.0) 11/19/17 04:35 RDW 13.3 % (11.5-20.0) 11/19/17 04:35 Plt Count 209 Th/cmm (150-400) 11/19/17 04:35 MPV 8.8 fl 11/19/17 04:35 Neutrophils % 46.9 % (40.0-80.0) 11/19/17 04:35 Lymphocytes % 41.2 % (20.0-50.0) 11/19/17 04:35 Monocytes % 10.2 % (2.0-10.0) H 11/19/17 04:35 Eosinophils % 1.4 % (0.0-5.0) 11/19/17 04:35 Basophils % 0.3 % (0.0-2.0) 11/19/17 04:35 Sodium 137 mEq/L (136-145) 11/19/17 04:35 Potassium 3.6 mEq/L (3.5-5.1) 11/19/17 04:35 Chloride 106 mEq/L (98-107) 11/19/17 04:35 Carbon Dioxide 25.5 mEq/L (21.0-31.0) 11/19/17 04:35 Anion Gap 9.1 (7.0-16.0) 11/19/17 04:35 BUN 17 mg/dL (7-25) 11/19/17 04:35 Creatinine 0.8 mg/dL (0.6-1.2) 11/19/17 04:35 Est GFR ( Amer) TNP 11/19/17 04:35 Est GFR (Non-Af Amer) TNP 11/19/17 04:35 BUN/Creatinine Ratio 21.3 11/19/17 04:35 Glucose 105 mg/dL (70-105) 11/19/17 04:35 POC Glucose 88 MG/DL (70 - 105) 11/17/17 16:10 Calcium 9.2 mg/dL (8.6-10.3) 11/19/17 04:35 Total Bilirubin 0.5 mg/dL (0.3-1.0) 11/19/17 04:35 AST 12 U/L (13-39) L 11/19/17 04:35 ALT 7 U/L (7-52) 11/19/17 04:35 Alkaline Phosphatase 52 U/L (34-104) 11/19/17 04:35 Total Protein 5.9 gm/dL (6.0-8.3) L 11/19/17 04:35 Albumin 3.3 gm/dL (3.7-5.3) L 11/19/17 04:35 Globulin 2.6 gm/dL 11/19/17 04:35 Albumin/Globulin Ratio 1.3 (1.0-1.8) 11/19/17 04:35 - Physical Exam Vitals and I&O: Vital Signs Temp 96.8 F 11/21/17 16:00 Pulse 64 11/21/17 16:19 Resp 18 11/21/17 16:00 BP 130/52 11/21/17 16:19 Pulse Ox 97 11/21/17 16:00 Intake & Output 11/20/17 11/21/17 11/21/17 18:59 06:59 18:59 Intake Total 1050 1750 Balance 1050 1750 Weight (lbs) 59.738 kg Intake: Intake, IV Amount 1050 1000 D5-0.45NS 1,000 ml @ 50 1000 1000 mls/hr IV .Q20H [facility] Rx#: [id number] cefTRIAXone 1 gm In 50 Sodium Chloride 0.9% 50 ml @ 100 mls/hr IV Q24HR [facility] Rx#:[id number] Oral 750 Other: # Voids 2 # Bowel Movements 1 Weight Source Bedscale Active Medications: Current Medications Amlodipine Besylate (Norvasc) 10 mg PO HS [facility] Stop: 01/17/18 20:59 Last Admin: 11/20/17 20:48 Dose: 10 mg Bisacodyl (Dulcolax 10 Mg Supp) 10 mg RC DAILY PRN PRN Reason: Constipation Stop: 01/17/18 09:02 Clonidine HCl (Fiwtmswi-Koq-5) 1 patch TD Fr [facility] Stop: 01/18/18 09:02 Last Admin: 11/19/17 10:10 Dose: 1 patch Clopidogrel Bisulfate (Plavix) 75 mg PO DAILY [facility] Stop: 01/18/18 08:59 Last Admin: 11/21/17 08:11 Dose: 75 mg Divalproex Sodium (Depakote Dr) 125 mg PO DAILY [facility]; Protocol Stop: 01/18/18 08:59 Last Admin: 11/21/17 08:11 Dose: 125 mg Divalproex Sodium (Depakote Dr) 125 mg PO HS [facility]; Protocol Stop: 01/17/18 20:59 Last Admin: 11/20/17 20:49 Dose: 125 mg Docusate Sodium (Colace) 100 mg PO BID [facility] Stop: 01/17/18 16:59 Last Admin: 11/21/17 16:18 Dose: 100 mg Famotidine (Pepcid) 20 mg PO QAM [facility] Stop: 01/18/18 08:59 Last Admin: 11/21/17 08:11 Dose: 20 mg Hydrochlorothiazide (Hctz) 25 mg PO DAILY [facility] Stop: 01/18/18 08:59 Last Admin: 11/21/17 08:11 Dose: 25 mg Dextrose/Sodium Chloride (D5-0.45ns) 1,000 mls @ 50 mls/hr IV .Q20H [facility] Stop: 01/16/18 16:29 Last Admin: 11/21/17 08:17 Dose: 50 mls/hr Ceftriaxone Sodium 1 gm/ (Sodium Chloride) 50 mls @ 100 mls/hr IV Q24HR [facility] Last Admin: 11/21/17 16:18 Dose: 100 mls/hr Lorazepam (Ativan) 0.5 mg PO Q4HR PRN; Protocol PRN Reason: Anxiety Stop: 01/17/18 09:02 Last Admin: 11/20/17 12:28 Dose: 0.5 mg Losartan Potassium (Cozaar) 100 mg PO DAILY [facility] Stop: 01/18/18 08:59 Last Admin: 11/21/17 08:10 Dose: 100 mg Magnesium Hydroxide (Milk Of Magnesia) 30 ml PO HS [facility] Stop: 01/17/18 20:59 Last Admin: 11/20/17 20:49 Dose: 30 ml Magnesium Oxide (Mag-Oxide) 400 mg PO DAILY [facility] Stop: 01/18/18 08:59 Last Admin: 11/21/17 08:11 Dose: 400 mg Medroxyprogesterone Acetate (Provera) 10 mg PO DAILY [facility]; Protocol Stop: 01/18/18 08:59 Last Admin: 11/21/17 08:10 Dose: 10 mg Metoprolol Tartrate (Lopressor) 100 mg PO BID [facility] Stop: 01/17/18 16:59 Last Admin: 11/21/17 16:19 Dose: 100 mg Multivitamins/Vitamin C (Theragran) 1 tab PO DAILY [facility] Stop: 01/18/18 08:59 Last Admin: 11/21/17 08:11 Dose: 1 tab Potassium Chloride (Klor-Con) 10 meq PO BID [facility] Stop: 01/17/18 16:59 Last Admin: 11/21/17 16:19 Dose: 10 meq Quetiapine Fumarate (Seroquel) 12.5 mg PO HS [facility]; Protocol Stop: 01/17/18 20:59 Last Admin: 11/20/17 20:49 Dose: 12.5 mg Zolpidem Tartrate (Ambien) 5 mg PO HS PRN PRN Reason: Insomnia Stop: 01/17/18 09:02 Infectious Disease Assmt/Plan - Assessment Assessment: 1. UTI. Escherichia coli UTI. 2. Dementia. 3. Hypertension. 4. Arthritis. - Plan Plan: CPM. Antibiotics, rocephin. Nutritional Asmnt/Malnutr-PDOC - Dietary Evaluation Malnutrition Findings (Please click <Entered> for more info): Nutritional Asmnt/Malnutrition Start: 11/20/17 11: 19 Text: Status: Complete Freq: Protocol: Document 11/20/17 11:19 JOSE JUAN (Rec: 11/20/17 11:35 JOSE JUAN FERRER- FNS1) Nutritional Asmnt/Malnutrition Patient General Information Nutritional Screening High Risk Diagnosis dehydration Pertinent Medical Hx/Surgical Hx CAD, Hypertension and GERD. Subjective Information Patient was transferred from [facility] unit. Swallow evaluation was completed on 11/18 with recommendation of Pureed diet, thin liquids. Patient sleeping in bed at time of visit. Current Diet Order/ Nutrition Support Pureed Patient / S.O Not Indicated Pertinent Medications dulcolax, D5-0.45 NS @50 ml/hr , colace, pepcid, cozaar, MOM, mag-oxide, theragran, Klor- con Pertinent Labs (11/19) Albumin 3.3 (stable) Nutritional Hx/Data Height 1.68 m Height (Calculated Centimeters) 167.6 Current Weight (lbs) 58.967 kg Weight (Calculated Kilograms) 59.0 Weight (Calculated Grams) 08775.0 [place] Body Weight 130 % [place] Body Weight 100 Body Mass Index (BMI) 20.9 Recent Weight Change No Weight Status Approriate GI Symptoms GI Symptoms None Last BM 11/20 x 1 Difficult in: None Food Allergies No Cultural/Ethnic/Spiritism Belief none indicated Usual diet at home unknown Skin Integrity/Comment: Slick 14, intact Current %PO Fair (50-74%) Estimated Nutritional Goals BEE in Kcals: Using Current wt Calories/Kcals/Kg 25-30 kcal/kg using CBW 56.1kg Kcals Calculated 7508-1354 kcal/day Protein: Using Current wt Protein g/k gm/kg Protein Calculated 60 gm/day Fluid: ml 1146-6576 ml/day or per MD d/t dehydration Nutritional Problem 1. Problem Problem Inadequate oral intake related to Etiology possible poor appetite aeb Signs/Symptoms: Oral intake ~50% of meals Intervention/Recommendation Comments 1. Continue pureed diet as tolerated by patient as it is the texture that was recommended by PLAYGROUND AIDE swallow evaluation. 2. 1:1 feeder as recommended by PLAYGROUND AIDE. F/U as Moderate risk in 3-5 days (11/23-) Expected Outcomes/Goals Expected Outcomes/Goals oral intake >75% of meals, weight stable, nutrition related labs WNL
--- NOTE | 2017-11-21 18:12 | Infectious Disease Prog Note ---
Infectious Disease Subjective - Review of Systems Service Date: 11/21/17 Subjective: No fever. Infectious Disease Objective - Results Result Diagrams: 11/19/17 04:35 11/19/17 04:35 Recent Labs: Laboratory Last Values WBC 6.4 Th/cmm (4.8-10.8) D 11/19/17 04:35 RBC 4.75 Mil/cmm (3.80-5.20) 11/19/17 04:35 Hgb 14.4 gm/dL (12-16) 11/19/17 04:35 Hct 42.6 % (41.0-60) 11/19/17 04:35 MCV 89.7 fl (81-100) 11/19/17 04:35 MCH 30.3 pg (27.0-31.0) 11/19/17 04:35 MCHC Differential 33.8 pg (28.0-36.0) 11/19/17 04:35 RDW 13.3 % (11.5-20.0) 11/19/17 04:35 Plt Count 209 Th/cmm (150-400) 11/19/17 04:35 MPV 8.8 fl 11/19/17 04:35 Neutrophils % 46.9 % (40.0-80.0) 11/19/17 04:35 Lymphocytes % 41.2 % (20.0-50.0) 11/19/17 04:35 Monocytes % 10.2 % (2.0-10.0) H 11/19/17 04:35 Eosinophils % 1.4 % (0.0-5.0) 11/19/17 04:35 Basophils % 0.3 % (0.0-2.0) 11/19/17 04:35 Sodium 137 mEq/L (136-145) 11/19/17 04:35 Potassium 3.6 mEq/L (3.5-5.1) 11/19/17 04:35 Chloride 106 mEq/L (98-107) 11/19/17 04:35 Carbon Dioxide 25.5 mEq/L (21.0-31.0) 11/19/17 04:35 Anion Gap 9.1 (7.0-16.0) 11/19/17 04:35 BUN 17 mg/dL (7-25) 11/19/17 04:35 Creatinine 0.8 mg/dL (0.6-1.2) 11/19/17 04:35 Est GFR ( Amer) TNP 11/19/17 04:35 Est GFR (Non-Af Amer) TNP 11/19/17 04:35 BUN/Creatinine Ratio 21.3 11/19/17 04:35 Glucose 105 mg/dL (70-105) 11/19/17 04:35 POC Glucose 88 MG/DL (70 - 105) 11/17/17 16:10 Calcium 9.2 mg/dL (8.6-10.3) 11/19/17 04:35 Total Bilirubin 0.5 mg/dL (0.3-1.0) 11/19/17 04:35 AST 12 U/L (13-39) L 11/19/17 04:35 ALT 7 U/L (7-52) 11/19/17 04:35 Alkaline Phosphatase 52 U/L (34-104) 11/19/17 04:35 Total Protein 5.9 gm/dL (6.0-8.3) L 11/19/17 04:35 Albumin 3.3 gm/dL (3.7-5.3) L 11/19/17 04:35 Globulin 2.6 gm/dL 11/19/17 04:35 Albumin/Globulin Ratio 1.3 (1.0-1.8) 11/19/17 04:35 - Physical Exam Vitals and I&O: Vital Signs Temp 96.8 F 11/21/17 16:00 Pulse 64 11/21/17 16:19 Resp 18 11/21/17 16:00 BP 130/52 11/21/17 16:19 Pulse Ox 97 11/21/17 16:00 Intake & Output 11/20/17 11/21/17 11/21/17 18:59 06:59 18:59 Intake Total 1050 1750 Balance 1050 1750 Weight (lbs) 59.738 kg Intake: Intake, IV Amount 1050 1000 D5-0.45NS 1,000 ml @ 50 1000 1000 mls/hr IV .Q20H [facility] Rx#: [id number] cefTRIAXone 1 gm In 50 Sodium Chloride 0.9% 50 ml @ 100 mls/hr IV Q24HR [facility] Rx#:[id number] Oral 750 Other: # Voids 2 # Bowel Movements 1 Weight Source Bedscale Active Medications: Current Medications Amlodipine Besylate (Norvasc) 10 mg PO HS [facility] Stop: 01/17/18 20:59 Last Admin: 11/20/17 20:48 Dose: 10 mg Bisacodyl (Dulcolax 10 Mg Supp) 10 mg RC DAILY PRN PRN Reason: Constipation Stop: 01/17/18 09:02 Clonidine HCl (Duthicyo-Yyw-7) 1 patch TD Fr [facility] Stop: 01/18/18 09:02 Last Admin: 11/19/17 10:10 Dose: 1 patch Clopidogrel Bisulfate (Plavix) 75 mg PO DAILY [facility] Stop: 01/18/18 08:59 Last Admin: 11/21/17 08:11 Dose: 75 mg Divalproex Sodium (Depakote Dr) 125 mg PO DAILY [facility]; Protocol Stop: 01/18/18 08:59 Last Admin: 11/21/17 08:11 Dose: 125 mg Divalproex Sodium (Depakote Dr) 125 mg PO HS [facility]; Protocol Stop: 01/17/18 20:59 Last Admin: 11/20/17 20:49 Dose: 125 mg Docusate Sodium (Colace) 100 mg PO BID [facility] Stop: 01/17/18 16:59 Last Admin: 11/21/17 16:18 Dose: 100 mg Famotidine (Pepcid) 20 mg PO QAM [facility] Stop: 01/18/18 08:59 Last Admin: 11/21/17 08:11 Dose: 20 mg Hydrochlorothiazide (Hctz) 25 mg PO DAILY [facility] Stop: 01/18/18 08:59 Last Admin: 11/21/17 08:11 Dose: 25 mg Dextrose/Sodium Chloride (D5-0.45ns) 1,000 mls @ 50 mls/hr IV .Q20H [facility] Stop: 01/16/18 16:29 Last Admin: 11/21/17 08:17 Dose: 50 mls/hr Ceftriaxone Sodium 1 gm/ (Sodium Chloride) 50 mls @ 100 mls/hr IV Q24HR [facility] Last Admin: 11/21/17 16:18 Dose: 100 mls/hr Lorazepam (Ativan) 0.5 mg PO Q4HR PRN; Protocol PRN Reason: Anxiety Stop: 01/17/18 09:02 Last Admin: 11/20/17 12:28 Dose: 0.5 mg Losartan Potassium (Cozaar) 100 mg PO DAILY [facility] Stop: 01/18/18 08:59 Last Admin: 11/21/17 08:10 Dose: 100 mg Magnesium Hydroxide (Milk Of Magnesia) 30 ml PO HS [facility] Stop: 01/17/18 20:59 Last Admin: 11/20/17 20:49 Dose: 30 ml Magnesium Oxide (Mag-Oxide) 400 mg PO DAILY [facility] Stop: 01/18/18 08:59 Last Admin: 11/21/17 08:11 Dose: 400 mg Medroxyprogesterone Acetate (Provera) 10 mg PO DAILY [facility]; Protocol Stop: 01/18/18 08:59 Last Admin: 11/21/17 08:10 Dose: 10 mg Metoprolol Tartrate (Lopressor) 100 mg PO BID [facility] Stop: 01/17/18 16:59 Last Admin: 11/21/17 16:19 Dose: 100 mg Multivitamins/Vitamin C (Theragran) 1 tab PO DAILY [facility] Stop: 01/18/18 08:59 Last Admin: 11/21/17 08:11 Dose: 1 tab Potassium Chloride (Klor-Con) 10 meq PO BID [facility] Stop: 01/17/18 16:59 Last Admin: 11/21/17 16:19 Dose: 10 meq Quetiapine Fumarate (Seroquel) 12.5 mg PO HS [facility]; Protocol Stop: 01/17/18 20:59 Last Admin: 11/20/17 20:49 Dose: 12.5 mg Zolpidem Tartrate (Ambien) 5 mg PO HS PRN PRN Reason: Insomnia Stop: 01/17/18 09:02 General: no acute distress, well developed, well nourished HEENT: atraumatic, normocephalic, PERRLA, EOMI Neck: supple, no thyromegaly Cardiovascular: S1S2, regular Lungs: clear to auscultation bilaterally, clear to percussion Abdomen: soft, no tender, no distended, no mass Extremities: no cyanosis, no clubbing, no edema Neurological: awake, alert, oriented Skin: intact Infectious Disease Assmt/Plan - Assessment Assessment: 1. UTI. Escherichia coli UTI. 2. Dementia. 3. Hypertension. 4. Arthritis. - Plan Plan: CPM. Antibiotics, rocephin. Nutritional Asmnt/Malnutr-PDOC - Dietary Evaluation Malnutrition Findings (Please click <Entered> for more info): Nutritional Asmnt/Malnutrition Start: 11/20/17 11: 19 Text: Status: Complete Freq: Protocol: Document 11/20/17 11:19 JOSE JUAN (Rec: 11/20/17 11:35 JOSE JUAN CARISSA- FNS1) Nutritional Asmnt/Malnutrition Patient General Information Nutritional Screening High Risk Diagnosis dehydration Pertinent Medical Hx/Surgical Hx CAD, Hypertension and GERD. Subjective Information Patient was transferred from [facility] unit. Swallow evaluation was completed on 11/18 with recommendation of Pureed diet, thin liquids. Patient sleeping in bed at time of visit. Current Diet Order/ Nutrition Support Pureed Patient / S.O Not Indicated Pertinent Medications dulcolax, D5-0.45 NS @50 ml/hr , colace, pepcid, cozaar, MOM, mag-oxide, theragran, Klor- con Pertinent Labs (11/19) Albumin 3.3 (stable) Nutritional Hx/Data Height 1.68 m Height (Calculated Centimeters) 167.6 Current Weight (lbs) 58.967 kg Weight (Calculated Kilograms) 59.0 Weight (Calculated Grams) 16041.0 [place] Body Weight 130 % [place] Body Weight 100 Body Mass Index (BMI) 20.9 Recent Weight Change No Weight Status Approriate GI Symptoms GI Symptoms None Last BM 11/20 x 1 Difficult in: None Food Allergies No Cultural/Ethnic/Yarsani Belief none indicated Usual diet at home unknown Skin Integrity/Comment: Slick 14, intact Current %PO Fair (50-74%) Estimated Nutritional Goals BEE in Kcals: Using Current wt Calories/Kcals/Kg 25-30 kcal/kg using CBW 56.1kg Kcals Calculated 3206-5274 kcal/day Protein: Using Current wt Protein g/k gm/kg Protein Calculated 60 gm/day Fluid: ml 6777-9749 ml/day or per MD d/t dehydration Nutritional Problem 1. Problem Problem Inadequate oral intake related to Etiology possible poor appetite aeb Signs/Symptoms: Oral intake ~50% of meals Intervention/Recommendation Comments 1. Continue pureed diet as tolerated by patient as it is the texture that was recommended by [facility] swallow evaluation. 2. 1:1 feeder as recommended by [facility]. F/U as Moderate risk in 3-5 days (11/23-) Expected Outcomes/Goals Expected Outcomes/Goals oral intake >75% of meals, weight stable, nutrition related labs WNL
[2017-11-21] MEDS: Magnesium Hydroxide (MOM) 30 mL UDC PO SCH (20:15)
[2017-11-22 08:38] LABS: % BASOPHILS 0.3 % (0.0-2.0); % EOSINOPHILS 2.7 % (0.0-5.0); % LYMPHOCYTES 35.6 % (20.0-50.0); % MONOCYTES 9.2 % (2.0-10.0); % NEUTROPHILS 52.2 % (40.0-80.0); EOSINOPHILE ABSOLUTE 0.2 Th/cmm (0.1-0.4); HEMATOCRIT 45.8 % (41.0-60); HEMOGLOBIN 15.1 gm/dL (12-16); LYMPHOCYTE ABSOLUTE 2.1 Th/cmm (1.5-3.0); MEAN CELL VOLUME 89.5 fl (81-100); MEAN CORPUSCULAR HEMOGLOBIN 29.4 pg (27.0-31.0); MEAN CORPUSCULAR HGB CONC 32.9 pg (28.0-36.0); MEAN PLATELET VOLUME 8.2 fl; MONOCYTE ABSOLUTE 0.5 Th/cmm (0.3-1.0); PLATELET COUNT 221 Th/cmm (150-400); RED BLOOD COUNT 5.11 Mil/cmm (3.80-5.20); RED CELL DISTRIBUTION WIDTH 13.7 % (11.5-20.0); WHITE BLOOD COUNT 5.8 Th/cmm (4.8-10.8)
[2017-11-22] MEDS: Multivitamin Tab PO SCH (08:42)
[2017-11-22] MEDS: Potassium Chloride 10 mEq ER Tab PO SCH (08:42)
[2017-11-22 08:57] LABS: ANION GAP 8.6 (7.0-16.0); BUN - UREA NITROGEN 21 mg/dL (7-25); CALCIUM SERUM 9.5 mg/dL (8.6-10.3); CARBON DIOXIDE 27.3 mEq/L (21.0-31.0); CHLORIDE 102 mEq/L (98-107); CREATININE - SERUM 1.1 mg/dL (0.6-1.2); GLUCOSE 108 mg/dL (70-105); POTASSIUM SERUM 3.9 mEq/L (3.5-5.1); SODIUM SERUM 134 mEq/L (136-145)
--- NOTE | 2017-11-22 13:31 | Infectious Disease Prog Note ---
Infectious Disease Subjective - Review of Systems Service Date: 11/22/17 Subjective: No fever. Infectious Disease Objective - Results Result Diagrams: 11/22/17 08:30 11/22/17 08:30 Recent Labs: Laboratory Last Values WBC 5.8 Th/cmm (4.8-10.8) 11/22/17 08:30 RBC 5.11 Mil/cmm (3.80-5.20) 11/22/17 08:30 Hgb 15.1 gm/dL (12-16) 11/22/17 08:30 Hct 45.8 % (41.0-60) 11/22/17 08:30 MCV 89.5 fl (81-100) 11/22/17 08:30 MCH 29.4 pg (27.0-31.0) 11/22/17 08:30 MCHC Differential 32.9 pg (28.0-36.0) 11/22/17 08:30 RDW 13.7 % (11.5-20.0) 11/22/17 08:30 Plt Count 221 Th/cmm (150-400) 11/22/17 08:30 MPV 8.2 fl 11/22/17 08:30 Neutrophils % 52.2 % (40.0-80.0) 11/22/17 08:30 Lymphocytes % 35.6 % (20.0-50.0) 11/22/17 08:30 Monocytes % 9.2 % (2.0-10.0) 11/22/17 08:30 Eosinophils % 2.7 % (0.0-5.0) 11/22/17 08:30 Basophils % 0.3 % (0.0-2.0) 11/22/17 08:30 Sodium 134 mEq/L (136-145) L 11/22/17 08:30 Potassium 3.9 mEq/L (3.5-5.1) 11/22/17 08:30 Chloride 102 mEq/L (98-107) 11/22/17 08:30 Carbon Dioxide 27.3 mEq/L (21.0-31.0) 11/22/17 08:30 Anion Gap 8.6 (7.0-16.0) 11/22/17 08:30 BUN 21 mg/dL (7-25) 11/22/17 08:30 Creatinine 1.1 mg/dL (0.6-1.2) 11/22/17 08:30 Est GFR ( Amer) TNP 11/22/17 08:30 Est GFR (Non-Af Amer) TNP 11/22/17 08:30 BUN/Creatinine Ratio 19.1 11/22/17 08:30 Glucose 108 mg/dL (70-105) H 11/22/17 08:30 POC Glucose 88 MG/DL (70 - 105) 11/17/17 16:10 Calcium 9.5 mg/dL (8.6-10.3) 11/22/17 08:30 Total Bilirubin 0.5 mg/dL (0.3-1.0) 11/19/17 04:35 AST 12 U/L (13-39) L 11/19/17 04:35 ALT 7 U/L (7-52) 11/19/17 04:35 Alkaline Phosphatase 52 U/L (34-104) 11/19/17 04:35 Total Protein 5.9 gm/dL (6.0-8.3) L 11/19/17 04:35 Albumin 3.3 gm/dL (3.7-5.3) L 11/19/17 04:35 Globulin 2.6 gm/dL 11/19/17 04:35 Albumin/Globulin Ratio 1.3 (1.0-1.8) 11/19/17 04:35 - Physical Exam Vitals and I&O: Vital Signs Temp 98.1 F 11/22/17 12:13 Pulse 80 11/22/17 12:13 Resp 17 11/22/17 12:13 BP 97/70 11/22/17 12:13 Pulse Ox 100 11/22/17 12:13 Intake & Output 11/21/17 11/22/17 11/22/17 18:59 06:59 18:59 Intake Total 550 Balance 550 Weight (lbs) 59.738 kg 59.421 kg Intake: Oral 550 Other: # Voids 3 3 # Bowel Movements 1 Weight Source Bedscale Estimated Active Medications: Current Medications Amlodipine Besylate (Norvasc) 10 mg PO HS TINO Stop: 01/17/18 20:59 Last Admin: 11/21/17 20:05 Dose: 10 mg Bisacodyl (Dulcolax 10 Mg Supp) 10 mg RC DAILY PRN PRN Reason: Constipation Stop: 01/17/18 09:02 Clonidine HCl (Ylvernzj-Cun-8) 1 patch TD Fr TINO Stop: 01/18/18 09:02 Last Admin: 11/19/17 10:10 Dose: 1 patch Clopidogrel Bisulfate (Plavix) 75 mg PO DAILY [facility] Stop: 01/18/18 08:59 Last Admin: 11/22/17 08:40 Dose: Not Given Divalproex Sodium (Depakote Dr) 125 mg PO DAILY [facility]; Protocol Stop: 01/18/18 08:59 Last Admin: 11/22/17 08:40 Dose: Not Given Divalproex Sodium (Depakote Dr) 125 mg PO HS [facility]; Protocol Stop: 01/17/18 20:59 Last Admin: 11/21/17 20:07 Dose: 125 mg Docusate Sodium (Colace) 100 mg PO BID [facility] Stop: 01/17/18 16:59 Last Admin: 11/22/17 08:41 Dose: Not Given Famotidine (Pepcid) 20 mg PO QAM TINO Stop: 01/18/18 08:59 Last Admin: 11/22/17 08:41 Dose: Not Given Hydrochlorothiazide (Hctz) 25 mg PO DAILY TINO Stop: 01/18/18 08:59 Last Admin: 11/22/17 08:41 Dose: Not Given Dextrose/Sodium Chloride (D5-0.45ns) 1,000 mls @ 50 mls/hr IV .Q20H [facility] Stop: 01/16/18 16:29 Last Admin: 11/21/17 08:17 Dose: 50 mls/hr Ceftriaxone Sodium 1 gm/ (Sodium Chloride) 50 mls @ 100 mls/hr IV Q24HR [facility] Last Admin: 11/21/17 16:18 Dose: 100 mls/hr Lorazepam (Ativan) 0.5 mg PO Q4HR PRN; Protocol PRN Reason: Anxiety Stop: 01/17/18 09:02 Last Admin: 11/20/17 12:28 Dose: 0.5 mg Losartan Potassium (Cozaar) 100 mg PO DAILY [facility] Stop: 01/18/18 08:59 Last Admin: 11/22/17 08:41 Dose: Not Given Magnesium Hydroxide (Milk Of Magnesia) 30 ml PO HS TINO Stop: 01/17/18 20:59 Last Admin: 11/21/17 20:15 Dose: 30 ml Magnesium Oxide (Mag-Oxide) 400 mg PO DAILY [facility] Stop: 01/18/18 08:59 Last Admin: 11/22/17 08:41 Dose: Not Given Medroxyprogesterone Acetate (Provera) 10 mg PO DAILY [facility]; Protocol Stop: 01/18/18 08:59 Last Admin: 11/22/17 08:41 Dose: Not Given Metoprolol Tartrate (Lopressor) 100 mg PO BID TINO Stop: 01/17/18 16:59 Last Admin: 11/22/17 08:41 Dose: Not Given Multivitamins/Vitamin C (Theragran) 1 tab PO DAILY [facility] Stop: 01/18/18 08:59 Last Admin: 11/22/17 08:42 Dose: Not Given Potassium Chloride (Klor-Con) 10 meq PO BID TINO Stop: 01/17/18 16:59 Last Admin: 11/22/17 08:42 Dose: Not Given Quetiapine Fumarate (Seroquel) 12.5 mg PO HS [facility]; Protocol Stop: 01/17/18 20:59 Last Admin: 11/21/17 20:05 Dose: 12.5 mg Zolpidem Tartrate (Ambien) 5 mg PO HS PRN PRN Reason: Insomnia Stop: 01/17/18 09:02 General: no acute distress, well developed, well nourished HEENT: atraumatic, normocephalic, PERRLA, EOMI Neck: supple, no thyromegaly Cardiovascular: S1S2, regular Lungs: clear to auscultation bilaterally, clear to percussion Abdomen: soft, no tender, no distended Extremities: no cyanosis, no clubbing, no edema Neurological: awake, alert, oriented Skin: intact, no subcutaneous nodules Infectious Disease Assmt/Plan - Assessment Assessment: 1. UTI. Escherichia coli UTI. 2. Dementia. 3. Hypertension. 4. Arthritis. - Plan Plan: CPM. Antibiotics, rocephin. Nutritional Asmnt/Malnutr-PDOC - Dietary Evaluation Malnutrition Findings (Please click <Entered> for more info): Nutritional Asmnt/Malnutrition Start: 11/20/17 11: 19 Text: Status: Complete Freq: Protocol: Document 11/20/17 11:19 JOSE JUAN (Rec: 11/20/17 11:35 MARIANNEWOLF FERRER- [email or web address]) Nutritional Asmnt/Malnutrition Patient General Information Nutritional Screening High Risk Diagnosis dehydration Pertinent Medical Hx/Surgical Hx CAD, Hypertension and GERD. Subjective Information Patient was transferred from [facility] unit. Swallow evaluation was completed on 11/18 with recommendation of Pureed diet, thin liquids. Patient sleeping in bed at time of visit. Current Diet Order/ Nutrition Support Pureed Patient / S.O Not Indicated Pertinent Medications dulcolax, D5-0.45 NS @50 ml/hr , colace, pepcid, cozaar, MOM, mag-oxide, theragran, Klor- con Pertinent Labs (11/19) Albumin 3.3 (stable) Nutritional Hx/Data Height 1.68 m Height (Calculated Centimeters) 167.6 Current Weight (lbs) 58.967 kg Weight (Calculated Kilograms) 59.0 Weight (Calculated Grams) 25993.0 [place] Body Weight 130 % [place] Body Weight 100 Body Mass Index (BMI) 20.9 Recent Weight Change No Weight Status Approriate GI Symptoms GI Symptoms None Last BM 11/20 x 1 Difficult in: None Food Allergies No Cultural/Ethnic/Shinto Belief none indicated Usual diet at home unknown Skin Integrity/Comment: Slick 14, intact Current %PO Fair (50-74%) Estimated Nutritional Goals BEE in Kcals: Using Current wt Calories/Kcals/Kg 25-30 kcal/kg using CBW 56.1kg Kcals Calculated 9952-9157 kcal/day Protein: Using Current wt Protein g/k gm/kg Protein Calculated 60 gm/day Fluid: ml [id number] ml/day or per MD d/t dehydration Nutritional Problem 1. Problem Problem Inadequate oral intake related to Etiology possible poor appetite aeb Signs/Symptoms: Oral intake ~50% of meals Intervention/Recommendation Comments 1. Continue pureed diet as tolerated by patient as it is the texture that was recommended by [employer] swallow evaluation. 2. 1:1 feeder as recommended by [employer]. F/U as Moderate risk in 3-5 days (11/23-) Expected Outcomes/Goals Expected Outcomes/Goals oral intake >75% of meals, weight stable, nutrition related labs WNL
== END 2017-11-22 14:20 | DRG 690 ==
LOC: UNDOADMIN 14:10 → MSI 14:10 → UNDODISIN 11-22 14:25
PROVIDERS: ADMIT Internal Medicine; ATTEND Internal Medicine
DX: N39.0 Urinary tract infection, site not specified (principal); F03.91 Unspecified dementia, unspecified severity, with behavioral disturbance; E86.0 Dehydration; I25.10 Atherosclerotic heart disease of native coronary artery without angina pectoris; I10 Essential (primary) hypertension; K21.9 Gastro-esophageal reflux disease without esophagitis; B96.20 Unspecified Escherichia coli [E. coli] as the cause of diseases classified elsewhere; M19.90 Unspecified osteoarthritis, unspecified site; Z66 Do not resuscitate
CPT/HCPCS: 36415-UA; 80048-TC; 80053-TC; 82948-90; 85025-TC; J0696; X3401; Z7610